=== PATIENT | female | born 1995 | race Caucasian/White ===

== ENCOUNTER → 2018-08-05 | Outpatient (CLI) | payer OTHER ==
--- NOTE | 2018-08-06 10:25 | CPEEG ---
[f rep st] ELECTROENCEPHALOGRAM DATE OF STUDY: 08/05/2018 DATE OF INTERPRETATION: 08/06/2018 INTERPRETATION: Normal EEG during wakefulness and drowsiness. There were no potentially epileptogen ic abnormalities present in the recording. REPORT: This EEG contains 10 Hz alpha activity over the posterior head regions. There was no abnorm al activation at rest, during photic stimulation or hyperventilation. The patient intermittently bec sangeetha drowsy during the study. There was no abnormal activation during drowsiness or during times of a rousal. The patient did not fall into sustained sleep during the recording. /[id number]/[id number]
== END ==
LOC: FCPNEURO 14:59
PROVIDERS: ATTEND Psychiatry & Neurology Neurology
DX: R25.8 Other abnormal involuntary movements (principal); G93.2 Benign intracranial hypertension; R29.6 Repeated falls

== ENCOUNTER → 2018-10-09 | Outpatient (CLI) | payer OTHER ==
[~2018-10-09] MED LIST: GADOBUTROL 10 ML VIAL IVP ONE
== END ==
LOC: FIMAGING 09:46
PROVIDERS: ATTEND Physician Assistant Medical
DX: J32.0 Chronic maxillary sinusitis (principal); G93.2 Benign intracranial hypertension; R25.8 Other abnormal involuntary movements; R29.6 Repeated falls
CPT/HCPCS: A9585